=== PATIENT | male | born 1970 | race Caucasian/White ===

== ENCOUNTER 2016-08-29 10:26 | Emergency (ER) | payer OTHER ==
[2016-08-29] MEDS ORDERED: KETOROLAC 30 MG/1 ML SDV IM ONE (10:43)
[2016-08-29 10:45] VITALS: BP 157/96; PULSE 86; RESP 20; TEMP 97.9; O2SAT 97
--- NOTE | 2016-08-29 10:47 | UCPHY ---
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 He has a history of low back pain status post L4-L5 laminectomy. He states that his pain is typically well controlled but occasionally about once a year spasms up and takes quite a bit of rest and ice and physical therapy and pain medication to recover. He states that he is driving to work yesterday when it is spasmed. He has been trying to rest at home and taking Advil and Tylenol without significant improvement. He is here requesting Toradol pain medication. He states that muscle relaxants have not worked well for him in the past. He denies having any bowel or bladder abnormalities or weakness or radiculopathy. He denies any trauma. No fevers. No immunocompromise. REVIEW OF SYSTEMS: Constitutional: denies: chills, fever, recent illness, recent injury EENTM: denies: blurred vision, double vision, nose congestion Respiratory: denies: cough, shortness of breath Cardiac: denies: chest pain, irregular heart rate, lightheadedness, palpitations Gastrointestinal/Abdominal: denies: abdominal pain, diarrhea, nausea, vomiting, blood streaked stools Genitourinary: denies: dysuria, frequency, hematuria, pain Musculoskeletal: See HPI Skin: denies: lesions, rash, jaundice, bruising Neurological: denies: headache, numbness, paresthesia, tingling, dizziness, weakness Hematologic/Lymphatic: denies: blood clots, easy bleeding, easy bruising Immunologic/allergic: denies: HIV/AIDS, transplant EXAM: GENERAL: Well-appearing, obese and in no acute distress. HEAD: Atraumatic, normocephalic. EYES: Pupils equal round and reactive to light, extraocular movements intact, sclera anicteric, conjunctiva are normal. ENT: TMs normal, nares patent, oropharynx clear without exudates. Moist mucous membranes. NECK: Normal range of motion, supple without lymphadenopathy or JVD. LUNGS: Breath sounds clear to auscultation bilaterally and equal. No wheezes rales or rhonchi. HEART: Regular rate and rhythm without murmurs, rubs or gallops. ABDOMEN: Soft, nontender, normoactive bowel sounds. No guarding, no rebound. No masses appreciated. BACK: No CVA tenderness, no spinal tenderness, step-offs or deformities, mild spasming of paraspinous muscles. EXTREMITIES: Normal range of motion, no pitting or edema. No clubbing or cyanosis. NEUROLOGICAL: Cranial nerves II through XII grossly intact. Normal speech, normal gait. 5/5 strength, normal movement in all extremities, normal sensation PSYCH: Normal mood, normal affect. SKIN: Warm, dry, normal turgor, no visible rashes or lesions. Source: Patient Exam Limitations: No limitations - Personal History Current Tetanus/Diphtheria Vaccine: Yes - Medical/Surgical History Hx Asthma: No Hx Chronic Respiratory Disease: No Hx Diabetes: No Hx Cardiac Disease: No Hx Renal Disease: No Hx Cirrhosis: No Hx Alcoholism: No Hx HIV/AIDS: No Hx Splenectomy or Spleen Trauma: No Other PMH: Lumbar 4-5 fusion. sleep apnea - Family History Significant Family History: No pertinent family hx - Social History Smoking Status: Former smoker Alcohol Use: Sober Drug Use: None Constitutional: Initial Vital Signs Temperature (C) 36.6 C 08/29/16 10:33 Heart Rate 86 08/29/16 10:33 Respiratory Rate 20 08/29/16 10:33 Blood Pressure 157/96 H 08/29/16 10:33 O2 Sat (%) 97 08/29/16 10:33 O2 Delivery Mode Room Air Allergies/Adverse Reactions: amoxicillin [Amoxicillin] Allergy (Mild, Verified 08/29/16 10:32) Hives Home Medications: Medication Instructions Recorded Hydrocodone/APAP 5/325 [Hastings 1 - 2 tab PO Q4H PRN #10 tab 08/29/16 5/325 (RX)] Ketorolac Tromethamine [Toradol] 10 mg PO Q6H #16 tab 08/29/16 Medical Decision Making ED Course/Re-evaluation: the patient denies any trauma. He states this spasming is typical for his infrequent symptoms. He is requesting Toradol and a narcotic to take at night. Give him will small prescription of each as well as a shot here in the urgent care. He is happy with this plan and declines further workup or testing. he will also continue to rest and to his PT treatments. Differential Diagnosis: Partial list of the Differential diagnosis considered include but were not limited to; muscle spasming, arthritis, radiculopathy and although unlikely based on the history and physical exam, I also considered cord compression, infection. I discussed these differential diagnoses and the plan with the patient as well as the usual and expected course. The patient understands that the diagnosis is provisional and that in medicine we are not always correct and that further workup is often warranted. Usual and customary warnings were given. All of the patient's questions were answered. The patient was instructed to return to the emergency department should the symptoms at all worsen or return, otherwise to followup with the physician as we discussed. - Data Points Medications Given: Discontinued Medications Ketorolac Tromethamine (Toradol) 60 mg IM EDNOW ONE Stop: 08/29/16 10:44 Last Admin: 08/29/16 10:45 Dose: 60 mg Departure - Departure Disposition: Home, Routine, Self-Care Clinical Impression: Low back pain Qualifiers: Chronicity: acute Back pain laterality: bilateral Sciatica presence: without sciatica Qualified Code(s): M54.5 - Low back pain Condition: Fair Instructions: Low Back Strain (ED) Referrals: NONE *PRIMARY CARE P,. [Primary Care Provider] - As per Instructions Cristiane San MD [Medical Doctor] - As per Instructions Prescriptions: Hydrocodone/APAP 5/325 [Hastings 5/325 (RX)] 1 - 2 tab PO Q4H PRN #10 tab PRN Reason: Pain, Moderate Ketorolac Tromethamine [Toradol] 10 mg PO Q6H #16 tab - PQRS PQRS Measurement: Not applicable
== END 2016-08-29 11:00 | disposition home or self-care (01) ==
LOC: CED 10:26
DX: M54.5 Low back pain (principal); Z98.1 Arthrodesis status
CPT/HCPCS: 96372-PO; 99214-PO; G0463-PO; J1885

== ENCOUNTER 2017-04-25 16:53 | Emergency (ER) | payer OTHER ==
[2017-04-25 17:03] VITALS: BP 139/105; PULSE 108; RESP 18; TEMP 97.5; O2SAT 96
--- NOTE | 2017-04-25 17:03 | EDPHY ---
H & P Time Seen by Provider: 04/25/17 17:00 HPI/ROS: 46-year-old male with history of chronic back pain states he intermittently gets severe back spasm 1-2 times per year that tends to only respond to rest ice , massage and "narcotics ". He denies using narcotics on a regular basis. He complains of having severe right back spasm today. He denies loss of bowel or bladder control he denies numbness or tingling in his extremities. Review of systems As per HPI General no fever no chills no weakness HEENT no eye pain no eye discharge. No eye redness, no sore throat Respiratory no cough, no shortness of breath Cardiac no chest pain, no peripheral edema GI no abdominal pain, no diarrhea, no constipation, no nausea, no vomiting no flank pain, no hematuria, no dysuria Musculoskeletal no myalgias, no joint pain, see HPI Heme no easy bruising, no easy bleeding Endo no polyuria, no polydipsia Skin no rashes, no pruritus Neuro no syncope, no dizziness, no headaches Psych is no suicidal ideation, no homicidal ideation Past Medical/Surgical History: Chronic back pain L4-5 laminectomy Social History: Denies alcohol or drug use Smoking Status: Former smoker Physical Exam: 46-year-old male, obese HEENT atraumatic normocephalic, extraocular muscles intact, anicteric Oropharynx negative for erythema negative exudate, tolerating her own secretions Neck supple no meningismus Lungs clear to auscultation bilaterally Heart regular rate and rhythm without murmur rub or gallop Abdomen nondistended normoactive bowel sounds soft nontender Back no CVA tenderness, no step-offs, no spinal tenderness No rash, no ecchymosis, no gross swelling, right paralumbar tenderness to palpation Negative straight leg raise Able to walk on heels and toes Extremities no cyanosis clubbing or edema Neuro alert and oriented, no focal deficits Constitutional: Initial Vital Signs Temperature (C) 36.4 C 04/25/17 17:00 Heart Rate 108 H 04/25/17 17:00 Respiratory Rate 18 04/25/17 17:00 Blood Pressure 139/105 H 04/25/17 17:00 O2 Sat (%) 96 04/25/17 17:00 O2 Delivery Mode Room Air Allergies/Adverse Reactions: amoxicillin [Amoxicillin] Allergy (Mild, Verified 12/22/17 17:03) Hives Home Medications: Medication Instructions Recorded Ambien 04/25/17 GABAPENTIN 04/25/17 oxyCODONE/APAP 5/325 [Percocet 1 - 2 tab PO Q12H PRN #16 tab 04/25/17 5/325 (*)] Medical Decision Making ED Course/Re-evaluation: Patient seen and evaluated for lower back pain and spasm acute on top of chronic back pain. Impression Acute on chronic back pain Plan Patient already maxed on nonsteroidals, steroids, ice, massage. Patient states he feels no benefit from muscle relaxants. Given, Percocet, Rx for 16. Follow-up with PCP Differential Diagnosis: Low back pain, urinary tract infection, kidney stone, disc herniation, sciatica , shingle Departure - Departure Disposition: Home, Routine, Self-Care Clinical Impression: Back pain Condition: Good Instructions: Low Back Strain (ED) Referrals: Jacki Cordoba PA [Primary Care Provider] - As per Instructions Stand Alone Forms: Work Excuse Prescriptions: oxyCODONE/APAP 5/325 [Percocet 5/325 (*)] 1 - 2 tab PO Q12H PRN #16 tab PRN Reason: Pain, Severe
== END 2017-04-25 17:32 | disposition home or self-care (01) ==
LOC: CED 16:53
DX: M54.9 Dorsalgia, unspecified (principal); Z87.891 Personal history of nicotine dependence

== ENCOUNTER → 2017-07-28 | Outpatient (CLI) | payer OTHER | LOC: FIMAGING 16:10 | DX: M25.562 Pain in left knee (principal); M23.8X2 Other internal derangements of left knee ==

== ENCOUNTER → 2017-11-06 | Outpatient (CLI) | payer OTHER | LOC: FIMAGING 19:13 | PROVIDERS: ATTEND Orthopaedic Surgery | DX: M25.562 Pain in left knee (principal); M23.222 Derangement of posterior horn of medial meniscus due to old tear or injury, left knee; M23.262 Derangement of other lateral meniscus due to old tear or injury, left knee; M25.462 Effusion, left knee; M77.9 Enthesopathy, unspecified ==